=== PATIENT | female | born 2005 | race Two or more races ===

== ENCOUNTER 2023-12-21 11:14 | Outpatient (CLI) | payer OTHER | END 2023-12-21 11:16 | disposition home or self-care (01) | LOC: PRENATAL 11:14 → EDBD 11:14 → PRENATAL 11:16 | PROVIDERS: ATTEND Obstetrics & Gynecology Maternal & Fetal Medicine | DX: O26.849 Uterine size-date discrepancy, unspecified trimester (principal); Z36.0 Encounter for antenatal screening for chromosomal anomalies; Z14.8 Genetic carrier of other disease; Z3A.16 16 weeks gestation of pregnancy ==

== ENCOUNTER 2024-01-16 16:00 | Outpatient (CLI) | payer OTHER | END 2024-01-16 16:08 | disposition home health service (06) | LOC: PRENATAL 16:00 | PROVIDERS: ATTEND Obstetrics & Gynecology Maternal & Fetal Medicine | DX: O44.00 Complete placenta previa NOS or without hemorrhage, unspecified trimester (principal); Z14.8 Genetic carrier of other disease; O99.019 Anemia complicating pregnancy, unspecified trimester; Z3A.19 19 weeks gestation of pregnancy ==

== ENCOUNTER → 2024-02-27 10:39 | Outpatient (CLI) | payer OTHER | END | disposition home or self-care (01) | LOC: PRENATAL 10:39 | PROVIDERS: ATTEND Obstetrics & Gynecology Maternal & Fetal Medicine | DX: O26.849 Uterine size-date discrepancy, unspecified trimester (principal); O36.8199 Decreased fetal movements, unspecified trimester, other fetus; O99.019 Anemia complicating pregnancy, unspecified trimester; Z3A.25 25 weeks gestation of pregnancy ==

== ENCOUNTER → 2024-04-09 13:39 | Outpatient (CLI) | payer OTHER | END | disposition home or self-care (01) | LOC: PRENATAL 13:39 | PROVIDERS: ATTEND Obstetrics & Gynecology Maternal & Fetal Medicine | DX: O26.843 Uterine size-date discrepancy, third trimester (principal); O36.8130 Decreased fetal movements, third trimester, not applicable or unspecified; O99.013 Anemia complicating pregnancy, third trimester ==